=== PATIENT | male | born 1980 | race Caucasian/White ===

== ENCOUNTER 2019-12-04 14:29 | Emergency (ER) | payer OTHER ==
--- NOTE | 2019-12-04 15:28 | ER Document Report ---
ED Medical Screen (RME) - General Chief Complaint: Palpitations Stated Complaint: PALPITATIONS Time Seen by Provider: 12/04/19 14:58 Primary Care Provider: FARAZ ANSARI DPM [Primary Care Provider] - Follow up as needed - [facility] Notes: 12/04/19 15:06 39-year-old male to the emergency department with complaints of palpitations today. He states that he has historically gotten these palpitations every once in a while. He states he will feel it for a couple seconds and it will go away. He states he may come on every other month or every couple of years. He states he has been worked up for it in the past. Denies any chest pain. STates he got particulary concerned today when he started to have burning and pain into his left axilla and upper arm. Denies fevers, chills, cough, headache. He vapes. I performed a brief medical screening exam on the patient determined that the patient needs further evaluation and management by main side provider. I have placed initial orders to help expedite care. - Related Data Allergies/Adverse Reactions: No Known Allergies Allergy (Verified 12/04/19 14:57) Past Medical History - Social History Chew tobacco use (# tins/day): No Frequency of alcohol use: Occasional Drug Abuse: None Physical Exam - Vital signs Vitals: Temp Pulse Resp BP Pulse Ox 99.4 F 84 16 139/81 H 100 12/04/19 14:45 12/04/19 14:45 12/04/19 14:45 12/04/19 14:45 12/04/19 14:45 Course - Vital Signs Vital signs: Temp Pulse Resp BP Pulse Ox 99.4 F 84 16 139/81 H 100 12/04/19 14:57 12/04/19 14:45 12/04/19 14:45 12/04/19 14:45 12/04/19 14:45 Doctor's Discharge - Discharge Referrals: FARAZ ANSARI DPM [Primary Care Provider] - Follow up as needed
--- NOTE | 2019-12-04 15:30 | RADIOLOGY REPORT (SQ) ---
EXAM DESCRIPTION: CHEST 2 VIEWS IMAGES COMPLETED DATE/TIME: 12/04/2019 3:18 pm REASON FOR STUDY: palpitations COMPARISON: None. EXAM PARAMETERS: NUMBER OF VIEWS: two views TECHNIQUE: Digital Frontal and Lateral radiographic views of the chest acquired. RADIATION DOSE: NA LIMITATIONS: none FINDINGS: LUNGS AND PLEURA: No opacities, masses or pneumothorax. No pleural effusion. MEDIASTINUM AND HILAR STRUCTURES: No masses or contour abnormalities. HEART AND VASCULAR STRUCTURES: Heart normal size. No evidence for failure. BONES: No acute findings. HARDWARE: None in the chest. OTHER: No other significant finding. IMPRESSION: NO ACUTE RADIOGRAPHIC FINDING IN THE CHEST. TECHNICAL DOCUMENTATION: JOB ID: [id number] 2010 [employer]- All Rights Reserved Reading location - IP/workstation name: [email or web address]
[2019-12-04 16:18] LABS: ABSOLUTE BASOPHILS # (AUTO) 0.1 10^3/uL (0.0-0.2); ABSOLUTE EOSINOPHILS # (AUTO) 0.2 10^3/uL (0.0-0.6); ABSOLUTE LYMPHOCYTES (AUTO) 1.8 10^3/uL (0.5-4.7); ABSOLUTE MONOCYTES (AUTO) 0.5 10^3/uL (0.1-1.4); ABSOLUTE NEUT (AUTO) 4.9 10^3/uL (1.7-8.2); BASOPHILS % (AUTO) 1.1 % (0-2); EOSINOPHILS % (AUTO) 2.4 % (0-6); HEMATOCRIT 44.9 % (37.9-51.0); HEMOGLOBIN 15.6 g/dL (13.5-17.0); LYMPHOCYTES % (AUTO) 23.9 % (13-45); MEAN CORPUSCULAR HEMOGLOBIN 30.1 pg (27.0-33.4); MEAN CORPUSCULAR HGB CONC 34.8 g/dL (32.0-36.0); MEAN CORPUSCULAR VOLUME 87 fl (80-97); MONOCYTES % (AUTO) 6.2 % (3-13); PLATELET COUNT 211 10^3/uL (150-450); RED BLOOD COUNT 5.18 10^6/uL (4.35-5.55); RED CELL DISTRIBUTION WIDTH 13.5 % (11.5-14.0); SEGMENTED NEUTROPHILS % (AUTO) 66.4 % (42-78); TOTAL CELLS COUNTED % (AUTO) 100 %; WHITE BLOOD COUNT 7.4 10^3/uL (4.0-10.5)
[2019-12-04 16:44] LABS: ALBUMIN 4.9 g/dL (3.5-5.0); ALKALINE PHOSPHATASE 41 U/L (38-126); ANION GAP 11 (5-19); ASPARTATE AMINO TRANSFERASE 25 U/L (17-59); BILIRUBIN,DIRECT 0.3 mg/dL (0.0-0.4); BILIRUBIN,TOTAL 0.7 mg/dL (0.2-1.3); BLOOD UREA NITROGEN 8 mg/dL (7-20); CALCIUM 9.8 mg/dL (8.4-10.2); CARBON DIOXIDE 28 mmol/L (22-30); CHLORIDE 102 mmol/L (98-107); GLUCOSE 78 mg/dL (75-110); POTASSIUM 4.7 mmol/L (3.6-5.0); TOTAL PROTEIN 7.6 g/dL (6.3-8.2)
--- NOTE | 2019-12-04 21:55 | EKG REPORT ---
SEVERITY:- ABNORMAL ECG - SINUS RHYTHM PROBABLE LEFT ATRIAL ABNORMALITY ABNRM R PROG, CONSIDER ASMI OR LEAD PLACEMENT : Confirmed by: Misti Cerrato 04-Dec-2019 21:54:22
--- NOTE | 2019-12-04 23:54 | ER Document Report ---
ED General - General Chief Complaint: Palpitations Stated Complaint: PALPITATIONS Time Seen by Provider: 12/04/19 14:58 Primary Care Provider: FARAZ ANSARI DPM [Primary Care Provider] - Follow up as needed LAMONT LEONE MD [ACTIVE STAFF] - Follow up as needed FREDY ARAGON MD [ACTIVE STAFF] - Follow up as needed - HPI Notes: Patient is a 39-year-old male who presents to the emergency department for evaluation of palpitations. He states he has had these in the past. Today he started getting them more frequently. He was at work. He was not being particularly active. He states it feels like a "grabbing or shocking" sensation. He states today he started having a burning sensation in his axi llary region, that concerned him as he had not had that before, so he presents to the ER for further evaluation. That lasted about an hour. Is worsened by movement. Nothing seemed to make it better. The patient admits to drinking 4 cups of coffee every morning. Patient also states that he has had some unexplained weight loss over the last several months. He has been seen for it. He had an ultrasound of his abdomen, some blood work, nobody can seem to find the reason. He has lost nearly 40 pounds without trying. - Related Data Allergies/Adverse Reactions: No Known Allergies Allergy (Verified 12/04/19 14:57) Past Medical History - General Information source: Patient - Social History Smoking Status: Current Some Day Smoker - Vape Chew tobacco use (# tins/day): No Frequency of alcohol use: Occasional Drug Abuse: None Family History: Malignancy - Liver cancer in father Patient has homicidal ideation: No GI Medical History: Reports: Hx Irritable Bowel Past Surgical History: Reports: Hx Orthopedic Surgery Review of Systems - Review of Systems Constitutional: See HPI EENT: No symptoms reported Cardiovascular: See HPI Respiratory: No symptoms reported Gastrointestinal: No symptoms reported Genitourinary: No symptoms reported Musculoskeletal: No symptoms reported Skin: No symptoms reported Neurological/Psychological: No symptoms reported -: Yes All other systems reviewed and negative Physical Exam - Vital signs Vitals: Temp Pulse Resp BP Pulse Ox 99.4 F 84 16 139/81 H 100 12/04/19 14:45 12/04/19 14:45 12/04/19 14:45 12/04/19 14:45 12/04/19 14:45 - Notes Notes: Vital signs reviewed, please refer to chart. Head is normocephalic, atraumatic. Pupils equal round, reactive to light. Neck is supple without meningismus. Heart is regular rate and rhythm. Lungs are clear to auscultation bilaterally. Examination of the left upper extremity yields no obvious deformity. Full range of motion at the shoulder and elbow. He has some tenderness to palpation over the anterior margin of the deltoid and biceps muscles, consistent with the area of the patient's pain. Neurovascularly intact to the left upper extremity. Abdomen is soft, nontender, normoactive bowel sounds throughout. Extremities without cyanosis, clubbing. Posterior calves are nontender. Peripheral pulses are equal. Skin is warm and dry. Patient is awake, alert, neurological exam is nonfocal. Course - Re-evaluation Re-evalutation: 12/04/19 23:58 patient presents to the emergency department for evaluation of palpitations. To the patient that I suspected that the large amount of caffeine he ingests certainly could be contributing to his palpitations. He voiced understanding. He was advised to cut his caffeine consumption in half. He was advised of the potential consequences of entirely late eliminating caffeine at this time. Otherwise in regards to his IBS and his unexplained weight loss, certainly referral to GI would be appropriate. The patient has a family history of GI cancer, continues to lose weight. I will give him the name of gastroenterology affiliated with this institution. He voiced understanding to this as well. Otherwise, work appears unremarkable. He is to return to the ED with worsening new concerning symptoms of any sort. - Vital Signs Vital signs: Temp Pulse Resp BP Pulse Ox 99.4 F 84 16 139/81 H 100 12/04/19 14:57 12/04/19 14:45 12/04/19 14:45 12/04/19 14:45 12/04/19 14:45 - Laboratory Result Diagrams: 12/04/19 15:43 12/04/19 15:43 Laboratory results interpreted by me: 12/04/19 15:43 Magnesium 2.4 H - Diagnostic Test Radiology reviewed: Reports reviewed Radiology results interpreted by me: 12/04/19 23:59 Chest X-Ray 12/04/19 00:00 IMPRESSION: NO ACUTE RADIOGRAPHIC FINDING IN THE CHEST. - EKG Interpretation by Me Additional EKG results interpreted by me: 12/04/19 23:59 Sinus mechanism with a rate of 82 bpm. Normal axis and intervals. No acute changes concerning for ischemia or infarction. Discharge - Discharge Clinical Impression: Palpitations, Unexplained weight loss Condition: Stable Disposition: HOME, SELF-CARE Instructions: Palpitations (Irregular or Rapid Heartrate) ([facility]) Additional Instructions: Your lab work and imaging today showed no significant abnormalities. Please decrease the amount of caffeine you ingest daily. Follow-up with GI in regards to your IBS and unexplained weight loss. To wool tamper that come to this facility are listed on your paperwork. If you develop worsening or new concerning symptoms of any sort, please return immediately to the emergency department for evaluation. Referrals: FARAZ ANSARI DPM [Primary Care Provider] - Follow up as needed FREDY ARAGON MD [ACTIVE STAFF] - Follow up as needed LAMONT LEONE MD [ACTIVE STAFF] - Follow up as needed
[2019-12-05 00:25] VITALS: BP 132/86
== END 2019-12-05 00:25 | disposition home or self-care (01) ==
LOC: ER 14:29
DX: R00.2 Palpitations (principal); R20.8 Other disturbances of skin sensation; R63.4 Abnormal weight loss; F17.290 Nicotine dependence, other tobacco product, uncomplicated; Z80.0 Family history of malignant neoplasm of digestive organs
CPT/HCPCS: 36415; 71046; 80053; 83735; 84443; 84484; 85025; 93005; 93010; 99285